=== PATIENT | female | born 1965 | race Caucasian/White ===

== ENCOUNTER → 2018-11-16 | Outpatient (CLI) | payer MEDICAID ==
[~2018-11-16] MED LIST: MILK OF MA400 MG/51 PO; ULTRAM ER100 MG PO; VISTARIL 2525 MG/CAP PO; VITAMIN B121000 MCG PO; VITAMIN D2000 I1 PO
== END ==
LOC: COL.RAD 11-09 10:00
DX: K86.1 Other chronic pancreatitis (principal); I70.0 Atherosclerosis of aorta; R19.7 Diarrhea, unspecified; Z90.49 Acquired absence of other specified parts of digestive tract
CPT/HCPCS: Q9967